=== PATIENT | female | born 1995 | race Caucasian/White ===

== ENCOUNTER → 2019-10-01 08:55 | Outpatient (BNVA) | payer BC, SELFPAY | PROVIDERS: Family Provider Nurse Practitioner; PCP Nurse Practitioner; Visit Provider Nurse Practitioner | DX: E06.3 Autoimmune thyroiditis (principal); Z78.9 Other specified health status | CPT/HCPCS: 84443 ==

== ENCOUNTER → 2019-10-02 11:55 | Outpatient (BNVA) | payer BC, SELFPAY | PROVIDERS: Family Provider Nurse Practitioner; PCP Nurse Practitioner; Visit Provider Nurse Practitioner | DX: E06.3 Autoimmune thyroiditis (principal) | CPT/HCPCS: 84439; 84481 ==

== ENCOUNTER → 2020-05-26 11:32 | Outpatient (BNVA) | payer OTHER, SELFPAY | PROVIDERS: Family Provider Nurse Practitioner; PCP Dermatology; Visit Provider Nurse Practitioner Family | DX: J06.9 Acute upper respiratory infection, unspecified (principal); Z11.59 Encounter for screening for other viral diseases | CPT/HCPCS: 87635 ==

== ENCOUNTER 2020-06-01 09:25 | Outpatient (CLI) | payer OTHER, SELFPAY ==
--- NOTE | 2020-06-01 09:27 | XR_ITS ---
WS: [id number] XR chest 1V 20078 REASON FOR EXAM: Cough SOB with activity FINDINGS: The heart and mediastinum are within normal limits. No active pulmonary parenchymal or pleural disease is noted. The bony thorax is intact. The chest is unchanged compared to 09/16/2012. XR/XR chest 1V [id number] IMPRESSION: No acute chest abnormality.
== END 2020-06-01 09:26 | disposition home or self-care (01) ==
LOC: RAD 09:26
PROVIDERS: PCP Nurse Practitioner; Visit Provider Nurse Practitioner
DX: R06.02 Shortness of breath (principal)
CPT/HCPCS: 71045

== ENCOUNTER → 2020-11-01 16:27 | Outpatient (BNVA) | payer OTHER, SELFPAY | PROVIDERS: PCP Nurse Practitioner; Visit Provider Nurse Practitioner | DX: Z12.4 Encounter for screening for malignant neoplasm of cervix (principal); Z30.44 Encounter for surveillance of vaginal ring hormonal contraceptive device | CPT/HCPCS: 88175 ==

== ENCOUNTER → 2021-02-25 11:29 | Outpatient (BNVA) | payer OTHER, SELFPAY | PROVIDERS: PCP Nurse Practitioner; Visit Provider Nurse Practitioner | DX: Z12.4 Encounter for screening for malignant neoplasm of cervix (principal); E06.3 Autoimmune thyroiditis; Z78.9 Other specified health status | CPT/HCPCS: 80053; 84439; 84443; 84481; 88175 ==

== ENCOUNTER → 2021-03-25 14:42 | Outpatient (BNVA) | payer OTHER, SELFPAY | PROVIDERS: PCP Nurse Practitioner; Referring Provider Nurse Practitioner; Visit Provider Nurse Practitioner Women's Health | DX: N93.9 Abnormal uterine and vaginal bleeding, unspecified (principal) | CPT/HCPCS: 84702; 85025 ==

== ENCOUNTER → 2021-04-22 14:19 | Outpatient (BNVA) | payer OTHER, SELFPAY | PROVIDERS: PCP Nurse Practitioner; Visit Provider Nurse Practitioner Women's Health | DX: N93.9 Abnormal uterine and vaginal bleeding, unspecified (principal) | CPT/HCPCS: 76830 ==

== ENCOUNTER 2021-05-18 21:59 | Emergency (ER) | payer OTHER, SELFPAY ==
[2021-05-18 22:05] VITALS: BP 130/87; PULSE 81; RESP 18; TEMP 36.8; O2SAT 100; BMI 30.9
--- NOTE | 2021-05-18 22:32 | W.ED.BACK ---
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 States she fell to the immediate sharp pain in her left lower back. States the pain is a 6 out of 10 worse with movement. Denies any saddle anesthesia. States is improved with rest. Denies any other pain elsewhere. Associated symptoms: Deny abdominal pain, chills, dysuria, fever(s), nausea or vomiting Review of Systems Const: Denies: fever(s), chills, body aches or change in appetite Eyes: Reports: blurry vision; Denies: eye discomfort ENMT: Denies: throat pain or dental pain Card: Denies: chest pain Resp: Denies: dyspnea GI: Denies: abdominal pain, nausea, vomiting or diarrhea : Denies: dysuria Musc: Reports: back pain; Denies: neck pain Skin/Breast: Denies: rash Neuro: Denies: headache(s) Psych: Denies: depression Margarito/Lymph: Denies: easy bruising All/Imm: Denies: urticaria PFSH ED PFSH: Medical History Anxiety Alicia's thyroiditis Surgical History H/O laparoscopy (~2014) for pelvic/flank pain-- performed at [facility] History of tonsillectomy 2003 Hx of myringotomy Tube placement 1994 Personal history of pyloric stenosis Surgery 01/1994, [facility], [place], [place]. Family History Grandmother Cancer Great grand..Breast Thyroid condition Father Diabetes Mother Thyroid condition Denies family history of Family history of premature coronary artery disease Social History Smoking and tobacco status: never smoked Second hand smoke exposure: No Smoking risk assessment/counseling performed?: No Alcohol intake: current Alcohol intake frequency: holidays/special occasions only Desire information about alcohol rehabilitation?: No Counseling given: No Desire information about substance/drug rehabilitation?: No Counseling given: No Adopted: No Caregiver/support person: No Lives independently: Yes Household members: other Housing: House Marital status: Single Number of children: 0 service: No Current occupational status: employed and student Current occupation: [employer] Pets and animals: Yes Pets & animals: dog(s) History of recent travel: No Current gender identity: Female Female Reproductive History: Date of last menstrual period: 04/27/21 Physical Exam Const: COMMON NORMALS: no acute distress, patient oriented x3 and healthy appearing HENMT: COMMON NORMALS: normocephalic and atraumatic HEAD & SCALP: normocephalic and atraumatic Eye: COMMON NORMALS: EOMs intact bilaterally Neck/C-Spine: COMMON NORMALS: full ROM and supple Chest: COMMONS NORMALS: normal inspection of the chest Resp: COMMON NORMALS: normal respiratory effort, No retractions and No use of accessory muscles Cardio: COMMON NORMALS: regular rate RATE: regular rate Back/Pelvis: OTHER: Tender over left lower lumbar no midline tenderness Extremity: COMMON NORMALS: normal to inspection Neuro: COMMON NORMALS: patient oriented x3, moves all extremities and no focal motor deficits Psych: COMMON NORMALS: mental status grossly normal, Normal thought process present and cooperative THOUGHT PROCESS: Normal thought process present Skin: COMMON NORMALS: no rashes or lesions noted and no wounds GENERAL SKIN EXAM: no rashes or lesions noted Course Vital Signs: Vital signs: Vital Signs Temperature 98.3 F 05/18/21 22:05 Pulse Rate 81 05/18/21 22:05 Respiratory Rate 18 05/18/21 22:05 Blood Pressure 130/87 05/18/21 22:05 Pulse Oximetry 100 05/18/21 22:05 MDM - Back Pain/Injury MDM Narrative: Medical decision making narrative: Here with a lumbar strain from lifting a patient. She is no signs of epidural abscess or cord compression. Will place patient on Naprosyn and Robaxin she is stable for discharge. She is to ice and rest. Discharge Plan Discharge Patient Disposition: Home Clinical Impression: Strain of lumbar region Qualifiers: Encounter type: initial encounter Qualified Code(s): S39.012A - Strain of muscle, fascia and tendon of lower back, initial encounter Condition: Stable Prescriptions: New methocarbamol 750 mg tablet 750 mg PO Q6H PRN (Reason: spasms) Qty: 20 RF: 0 Naprosyn 500 mg tablet 500 mg PO BID PRN (Reason: pain) Qty: 20 RF: 0 No Action etonogestrel-ethinyl estradiol [NuvaRing] 0.12-0.015 mg/24 hr ring 1 vag ring VAGINAL .month Qty: 3 RF: 1 levothyroxine 125 mcg tablet 125 mcg PO DAILY Qty: 30 RF: 0 liothyronine [Cytomel] 5 mcg tablet 5 mcg PO DAILY Qty: 30 RF: 0 ascorbic acid (vitamin C) 100 mg tablet See Rx Instructions PO DAILY RF: 0 cholecalciferol (vitamin D3) 10 mcg (400 unit) capsule See Rx Instructions PO DAILY RF: 0 ibuprofen 800 mg tablet 800 mg PO TID Qty: 90 RF: 3 doxepin 10 mg capsule 10 mg PO TID PRN (Reason: anxiety) Qty: 90 RF: 0 albuterol sulfate [ProAir HFA] 90 mcg/actuation HFA aerosol inhaler 2 puff INHALATION TID PRN (Reason: bronchospasm) Qty: 8 RF: 2 Discharge Orders: Discharge ED (Routine); Ordered 05/18/21 Ordered By: Simba Dumont Referrals: Charleen Gonzalez, [facility]ICIAN[facility] [Primary Care Provider] - 1-3 days Discharge Diet: Advance as tolerated Discharge Activity: Resume usual activity Patient Instructions: Low Back Strain (ED) Stand Alone Forms: Work/School Release Coding Level of Care Code ED 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
[2021-05-18 22:43] VITALS: BP 120/78; PULSE 68; RESP 18; O2SAT 99
[2021-05-18] MEDS: naproxen 500 mg Tablet PO (22:43)
== END 2021-05-18 22:45 | disposition home or self-care (01) ==
PROVIDERS: Emergency Provider Emergency Medicine; PCP Nurse Practitioner
DX: S39.012A Strain of muscle, fascia and tendon of lower back, initial encounter (principal); X50.0XXA Overexertion from strenuous movement or load, initial encounter; Y93.F2 Activity, caregiving, lifting; Y92.239 Unspecified place in hospital as the place of occurrence of the external cause; Y99.0 Civilian activity done for income or pay
CPT/HCPCS: 99282

== ENCOUNTER 2021-10-30 20:19 | Outpatient (CLI) | payer OTHER, SELFPAY ==
[2021-10-30 21:45] LABS: Influenza A by IFA Negative (Negative); Influenza B by IFA Negative (Negative)
[2021-10-30 22:47] LABS: Adenovirus Not Detected (NOT DETECT); Chlamydia Pneumoniae Not Detected (NOT DETECT); Coronavirus 229E,HKU1,NL63,OC4 Detected (NOT DETECT); Human Metapneumovirus Not Detected (NOT DETECT); Human Rhinovirus/Enterovirus Not Detected (NOT DETECT); Influenza A Not Detected (NOT DETECT); Influenza A H1 Not Detected (NOT DETECT); Influenza A H1-2009 Not Detected (NOT DETECT); Influenza A H3 Not Detected (NOT DETECT); Influenza B Not Detected (NOT DETECT); Mycoplasma Pneumoniae Not Detected (NOT DETECT); Parainfluenza Virus Type 1 Not Detected (NOT DETECT); Parainfluenza Virus Type 2 Not Detected (NOT DETECT); Parainfluenza Virus Type 3 Not Detected (NOT DETECT); Parainfluenza Virus Type 4 Not Detected (NOT DETECT); Respiratory Syncytial Virus A Not Detected (NOT DETECT); Respiratory Syncytial Virus B Not Detected (NOT DETECT); SARS-COV-2 Not Detected (NOT DETECT)
== END 2021-10-30 20:20 | disposition home or self-care (01) ==
PROVIDERS: PCP Nurse Practitioner; Visit Provider Nurse Practitioner Family
DX: R50.9 Fever, unspecified (principal)
CPT/HCPCS: 87635; 87804

== ENCOUNTER → 2023-04-12 10:13 | Outpatient (BNVA) | payer OTHER, SELFPAY | PROVIDERS: PCP Nurse Practitioner; Visit Provider Nurse Practitioner | DX: Z12.4 Encounter for screening for malignant neoplasm of cervix (principal) | CPT/HCPCS: 88175 ==

== ENCOUNTER 2023-11-26 10:04 | Outpatient (CLI) | payer OTHER, SELFPAY ==
--- NOTE | 2023-11-26 10:07 | XRR_ITS ---
PROCEDURE INFORMATION: Exam: XR Cervical Spine Exam date and time: 11/26/2023 10:26 AM Age: 28 years old Clinical indication: Pain; Cervicalgia; Additional info: M54.2 - cervicalgia TECHNIQUE: Imaging protocol: Radiologic exam of the cervical spine. Views: 2 or 3 views. COMPARISON: CR XR thoracic spine 3V* [id number] 11/26/2023 10:26 AM FINDINGS: Bones/joints: Normal. No acute fracture. Normal alignment. Soft tissues: Unremarkable. XR/XR cervical spine 3V* [id number] IMPRESSION: No acute findings.
--- NOTE | 2023-11-26 10:07 | XRR_ITS ---
PROCEDURE INFORMATION: Exam: XR Thoracic Spine Exam date and time: 11/26/2023 10:26 AM Age: 28 years old Clinical indication: Pain in thoracic spine; Additional info: M54.2 - cervicalgia TECHNIQUE: Imaging protocol: Radiologic exam of the thoracic spine. Views: 3 views. COMPARISON: CR XR cervical spine 3V* [id number] 11/26/2023 10:26 AM FINDINGS: Bones/joints: Normal. No acute fracture. Normal alignment. Soft tissues: Unremarkable. XR/XR thoracic spine 3V* [id number] IMPRESSION: No acute findings.
== END 2023-11-26 10:05 | disposition home or self-care (01) ==
LOC: RAD 10:05
PROVIDERS: PCP Nurse Practitioner; Visit Provider Nurse Practitioner
DX: M54.2 Cervicalgia (principal); M25.519 Pain in unspecified shoulder
CPT/HCPCS: 72040; 72072